=== PATIENT | male | born 2000 | race Caucasian/White ===

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

== ENCOUNTER 2020-04-12 15:55 | Emergency (ER) | payer MEDICAID ==
[~2020-04-12] VITALS: Ht 180.3 cm; Wt 142.5 kg
[2020-04-12 16:06] VITALS: BP 140/79
--- NOTE | 2020-04-12 16:07 | NUR ---
Patient ambulated to bed 4. RN evaluating patient at bedside.
--- NOTE | 2020-04-12 16:17 | NUR ---
AMY VAZ AT BEDSIDE EVALUATING PT.
[2020-04-12 16:35] VITALS: BP 140/79
--- NOTE | 2020-04-12 16:35 | NUR ---
20 Y/M PRESENTS TO ED C/O LEFT FOREARM PAIN, REDNESS S/P TATTO AREA X 2 DAYS. PT DENIES FEVER OR CHILLS. PT REPORTS 6/10 PAIN, DENIES ANY RX PMH: APPENDECTOMY
--- NOTE | 2020-04-12 16:36 | NUR ---
Patient discharged with v/s stable. Written and verbal after care instructions given and explained. Patient alert, oriented and verbalized understanding of instructions. Ambulatory with steady gait. All questions addressed prior to discharge. ID band removed. Patient advised to follow up with PMD. Rx of IBUPROFEN AND KEFLEX given. Patient educated on indication of medication including possible reaction and side effects. Opportunity to ask questions provided and answered.
== END 2020-04-12 16:36 | disposition home or self-care (01) ==
LOC: MED 15:55
DX: L03.811 Cellulitis of head [any part, except face] (principal); R03.0 Elevated blood-pressure reading, without diagnosis of hypertension; F14.10 Cocaine abuse, uncomplicated
CPT/HCPCS: 90471; 90715; 99283

== ENCOUNTER 2022-08-12 15:28 | Emergency (ER) | payer MEDICAID ==
[~2022-08-12] VITALS: Ht 177.8 cm; Wt 132.9 kg
[2022-08-12 15:29] VITALS: BP 125/75
[2022-08-12] MEDS ORDERED: ONDANSETRON 4 MG/2 ML VIAL IVP ONE (16:50)
[2022-08-12] MEDS ORDERED: NACL 0.9% 1,000 ML IV ONE (16:50)
[2022-08-12] MEDS ORDERED: MORPHINE SULFATE 4 MG/ML SYR IVP ONE (16:50)
[2022-08-12 17:09] LABS: BASOPHILS # (AUTO) 0.1 K/uL (0.00-0.22); BASOPHILS % (AUTO) 0.8 % (0.0-2.0); EOSINOPHILS # (AUTO) 0.4 K/uL (0-0.4); HEMATOCRIT 42.8 % (36-52); LYMPHOCYTES % (AUTO) 39.6 % (20.5-51.1); MEAN CORPUSCULAR HEMOGLOBIN 32 pg (27-31); MEAN CORPUSCULAR HGB CONC 35 g/dL (33-37); MEAN CORPUSCULAR VOLUME 92.2 fL (80-94); MONOCYTES # (AUTO) 0.5 K/uL (0.8-1.0); MONOCYTES % (AUTO) 6.5 % (1.7-9.3); NEUTROPHILS # (AUTO) 3.6 K/uL (1.8-7.7); NEUTROPHILS % (AUTO) 48.1 % (42.2-75.2); PLATELET COUNT (AUTO) 213 K/uL (140-450); RED BLOOD CELL COUNT(AUTO) 4.64 MIL/uL (4.20-6.10); RED CELL DISTRIBUTION WIDTH 12.7 % (11.6-13.7); WHITE BLOOD COUNT (AUTO) 7.5 K/uL (4.8-10.8)
[2022-08-12 17:10] LABS: BILIRUBIN,URINE NEGATIVE (NEGATIVE); BLOOD, URINE NEGATIVE (NEGATIVE); LEUKOCYTE ESTERASE ,URINE NEGATIVE (NEGATIVE); NITRITE, URINE NEGATIVE (NEGATIVE); UGLUCOSE NEGATIVE (NEGATIVE)
[2022-08-12 17:12] LABS: APPEARANCE,URINE CLEAR (CLEAR); COLOR,URINE YELLOW (YELLOW)
[2022-08-12 17:24] LABS: ALBUMIN 4.3 g/dL (3.4-5.0); ANION GAP 14.6 (8-16); CARBON DIOXIDE 24.3 mmol/L (21-32); CREATININE 0.9 mg/dL (0.6-1.3); POTASSIUM 3.9 mmol/L (3.5-5.1); TOTAL BILIRUBIN 0.6 mg/dL (0.0-1.0)
--- NOTE | 2022-08-12 17:55 | NUR ---
Pt returned back to bed from CT-scan. Pt stated, he is starting to feel better.
--- NOTE | 2022-08-12 18:43 | NUR ---
Pt awaiting CT scan results. Pt currently on the phone with his sister. Pt appears relaxed without distress.
--- NOTE | 2022-08-12 19:12 | NUR ---
No change in status. Pt resting in bed talking on phone to his sister.
[2022-08-12] MEDS ORDERED: IBUP-2218 PO (19:16)
[2022-08-12] MEDS ORDERED: ACET-10509 PO (19:16)
--- NOTE | 2022-08-12 19:19 | NUR ---
Pt endorsed to charge nurse Suzy ENCARNACION. Pt endorsed in stable condtion. Pt remains casey/asymptomatic.
[2022-08-12 19:36] VITALS: BP 121/65
--- NOTE | 2022-08-12 19:36 | NUR ---
Patient discharged with v/s stable. Written and verbal after care instructions given and explained. Patient alert, oriented and verbalized understanding of instructions. Ambulatory with by parent. All questions addressed prior to discharge. ID band removed. Patient advised to follow up with PMD. Rx of TYLENOL AND IBUPROFEN given. Patient educated on indication of medication including possible reaction and side effects. Opportunity to ask questions provided and answered.
== END 2022-08-12 19:36 | disposition home or self-care (01) ==
LOC: MED 15:28
DX: K42.9 Umbilical hernia without obstruction or gangrene (principal); Z90.49 Acquired absence of other specified parts of digestive tract; Z98.890 Other specified postprocedural states; Z79.899 Other long term (current) drug therapy; Z79.1 Long term (current) use of non-steroidal anti-inflammatories (NSAID)
CPT/HCPCS: 36415; 74177; 80053; 81003; 83690; 85025; 96361; 96374; 96375; 99285; J2270; J2405; J7030; Q9967

== ENCOUNTER 2022-08-17 13:43 | Emergency (ER) | payer MEDICAID ==
[~2022-08-17] VITALS: Ht 177.8 cm; Wt 133.4 kg
[~2022-08-17 13:43] MED LIST: ACET-10509 PO; IBUP-2218 PO
[2022-08-17 13:47] VITALS: BP 121/52
--- NOTE | 2022-08-17 14:00 | NUR ---
PT AMBULATED TO CHAIR A
[2022-08-17] MEDS ORDERED: MIRABULK PO (14:25)
[2022-08-17] MEDS ORDERED: ONDA-188 PO (14:25)
[2022-08-17] MEDS ORDERED: DOCU-299 PO (14:25)
[2022-08-17] MEDS ORDERED: FAMO-90 PO (14:25)
[2022-08-17] MEDS ORDERED: DICYCLOMINE HCL LIQUID 10 MG/5 ML UDC PO ONE (14:35)
[2022-08-17] MEDS ORDERED: ALUMINUM HYD/MAG/SIMETHICONE 30 ML UDC PO ONE (14:35)
[2022-08-17] MEDS ORDERED: ONDANSETRON 4 MG ODT PO ONE (14:35)
[2022-08-17 15:24] VITALS: BP 120/54
--- NOTE | 2022-08-17 15:24 | NUR ---
Patient discharged with v/s stable. Written and verbal after care instructions given and explained. Patient alert, oriented and verbalized understanding of instructions. Ambulatory with steady gait. All questions addressed prior to discharge. ID band removed. Patient advised to follow up with PMD. Rx of COLACE, PEPCID,MIRALAX,ZOFRAN given. Patient educated on indication of medication including possible reaction and side effects. Opportunity to ask questions provided and answered.
== END 2022-08-17 15:24 | disposition home or self-care (01) ==
LOC: MED 13:43
DX: K42.9 Umbilical hernia without obstruction or gangrene (principal); Z79.899 Other long term (current) drug therapy
CPT/HCPCS: 74021; 99284; Q0162

== ENCOUNTER 2022-12-01 16:45 | Emergency (ER) | payer MEDICAID ==
[~2022-12-01] VITALS: Ht 172.7 cm; Wt 90.7 kg
[~2022-12-01 16:45] MED LIST changes: +DOCU-299 PO; +FAMO-90 PO; +MIRABULK PO; +ONDA-188 PO
[2022-12-01 17:34] VITALS: BP 132/76; PULSE 89; RESP 18; TEMP 98; O2SAT 98
[2022-12-01] MEDS ORDERED: MOT200 PO (17:37)
[2022-12-01] MEDS ORDERED: ACET-11169 PO (17:37)
[2022-12-01 17:54] VITALS: BP 132/76; PULSE 89; RESP 18; TEMP 98; O2SAT 98
== END 2022-12-01 17:54 | disposition home or self-care (01) ==
LOC: MED 16:45
DX: J06.9 Acute upper respiratory infection, unspecified (principal); K12.1 Other forms of stomatitis; Z79.899 Other long term (current) drug therapy
CPT/HCPCS: 99282

== ENCOUNTER 2023-01-04 15:59 | Emergency (ER) | payer MEDICAID ==
[~2023-01-04] VITALS: Ht 177.8 cm; Wt 136.1 kg
[~2023-01-04 15:59] MED LIST changes: +ACET-11169 PO; +MOT200 PO
[2023-01-04 16:15] VITALS: BP 119/56; PULSE 78; RESP 14; TEMP 97.9; O2SAT 96
[2023-01-04] MEDS ORDERED: KETOROLAC 60 MG/2 ML VIAL IM ONE (17:00)
[2023-01-04] MEDS ORDERED: ACET-8905 PO (17:43)
[2023-01-04 18:24] VITALS: O2SAT 96
== END 2023-01-04 18:10 | disposition home or self-care (01) ==
LOC: MED 15:59
DX: K40.90 Unilateral inguinal hernia, without obstruction or gangrene, not specified as recurrent (principal); Z79.899 Other long term (current) drug therapy
CPT/HCPCS: 74176; 96372; 99285; J1885